=== PATIENT | male | born 1990 | race Caucasian/White ===

== ENCOUNTER 2021-09-21 15:35 | Emergency (ER) | payer MEDICAID ==
[~2021-09-21] VITALS: Ht 165.1 cm; Wt 65.8 kg
--- NOTE | 2021-09-21 16:07 | NUR ---
PT SELF PRESENTS TO ED C/O LOWER ABDOMINAL PAIN SINCE YESTERDAY S/P LIFTING CEMENT BAGS AT WORK. PT GOWNED AND PLACED ON MONITOR. VSS. AWAITING MD BECKHAM.
--- NOTE | 2021-09-21 16:13 | NUR ---
[facility] [employer] [facility] AT BEDSIDE FOR EVAL.
[2021-09-21] MEDS ORDERED: CT SWABBABLE VALVE TRANS SET 1 EA INFUS.SET MC ONE (16:18)
[2021-09-21] MEDS ORDERED: IV NS 0.9% 250 ML IV ONE (16:18)
[2021-09-21] MEDS ORDERED: IOHEXOL-300 100 ML VIAL IV ONE (16:18)
--- NOTE | 2021-09-21 16:20 | NUR ---
IV LINE STARTED BLOOD DRAWN AND SENT TO LAB.
[2021-09-21] MEDS: IV NS 0.9% 1,000 ML BAG IV ONE ×2 (16:22→17:06)
[2021-09-21] MEDS ORDERED: MORPHINE SULFATE INJ 4 MG/ML DISP.SYRIN ONE (17:01)
[2021-09-21] MEDS ORDERED: ONDANSETRON HCL/PF 4 MG/2 ML VIAL ONE (17:01)
[2021-09-21] MEDS: ONDANSETRON HCL/PF 4 MG/2 ML VIAL IVP ONE (17:07)
[2021-09-21] MEDS: MORPHINE SULFATE INJ 2 MG/ML DISP.SYRIN IV ONE (17:07)
[2021-09-21 17:47] LABS: BASOPHILS % (AUTO) 0.1 % (0.0-2.0); EOSINOPHILS % (AUTO) 0.8 % (0.0-6.0); HEMATOCRIT 44 % (39-51); LYMPHOCYTES % (AUTO) 14.1 % (20.0-44.0); MEAN CORPUSCULAR HGB CONC 34 g/dl (31.0-36.0); MEAN CORPUSCULAR VOLUME 91 fL (80-96); MONOCYTES # (AUTO) 0.8 K/uL (0.1-1.30); NEUTROPHILS # (AUTO) 5.4 K/uL (1.8-8.9); PLATELET COUNT (AUTO) 285 K/uL (150-450); RED BLOOD CELL COUNT(AUTO) 4.87 MIL/uL (4.5-6.0); WHITE BLOOD COUNT (AUTO) 7.4 K/uL (4.3-11.0)
[2021-09-21 18:43] LABS: ALANINE AMINOTRANSFERASE 87 U/L (12-78); ALBUMIN 3.8 g/dL (3.4-5.0); ALKALINE PHOSPHATASE 82 U/L (46-116); ASPARTATE AMINOTRANSFERASE 39 U/L (15-37); BILIRUBIN,DIRECT 0.2 mg/dL (0.0-0.2); CALCIUM, SERUM 8.2 mg/dL (8.5-10.1); CARBON DIOXIDE 27 mmol/L (21-32); CHLORIDE 102 mmol/L (98-107); CREATININE 0.9 mg/dL (0.6-1.3); GLUCOSE 110 mg/dL (74-106); LIPASE 72 U/L (73-393); POTASSIUM 3.4 mmol/L (3.5-5.1); SODIUM SERUM 137 mmol/L (136-145); TOTAL PROTEIN, SERUM 7.7 g/dL (6.4-8.2); UREA NITROGEN, BLOOD 13 mg/dL (7-18)
--- NOTE | 2021-09-21 19:13 | NUR ---
URINE SAMPLE COLLECTYED AND SENT TO LAB
[2021-09-21] MEDS ORDERED: CIPR-262 PO (19:44)
--- NOTE | 2021-09-21 19:58 | NUR ---
Patient discharged to home in stable condition. Rx and Written and verbal after care instructions given. Patient verbalizes understanding of instruction.
[2021-09-21 19:59] VITALS: BP 127/64
[2021-09-21 21:12] LABS: BILIRUBIN,URINE NEGATIVE (NEGATIVE); COLOR,URINE YELLOW (YELLOW); LEUKOCYTE ESTERASE ,URINE NEGATIVE (NEGATIVE); NITRITE, URINE NEGATIVE (NEGATIVE); PH,URINE 6.5 (5.0-8.0); PROTEIN,URINE NEGATIVE (NEGATIVE); UGLUCOSE NEGATIVE (NEGATIVE)
[2021-09-21 21:30] LABS: BACTERIA,URINE None seen /HPF (None Seen); RBC,URINE 0-2 /HPF (0-2); SQUAMOUS EPITHELIAL CELL,UR 0-2 /HPF (None Seen); WBC,URINE 0-2 /HPF (0-3)
== END 2021-09-21 19:59 | disposition home or self-care (01) ==
LOC: ER 15:46
DX: K52.89 Other specified noninfective gastroenteritis and colitis (principal); K76.0 Fatty (change of) liver, not elsewhere classified; K46.9 Unspecified abdominal hernia without obstruction or gangrene; Z79.2 Long term (current) use of antibiotics
CPT/HCPCS: 36415; 71045; 74177; 80048; 80076; 81001; 83690; 84484; 85025; 85730; 96361; 96374; 96375; 99285; J2270; J2405; J7030 ×2; J7050; Q9967